=== PATIENT | female | born 1975 | race Hispanic/Latino ===

== ENCOUNTER 2021-09-08 21:57 | Emergency (ER) | payer SELFPAY ==
[2021-09-08 22:13] VITALS: BP 149/85
[2021-09-08] MEDS ORDERED: ASPIRIN 81 MG TAB CHEW PO ONE (22:43)
--- NOTE | 2021-09-08 22:49 | Emergency Department Report ---
ED General Adult HPI - General Chief complaint: Chest Pain Stated complaint: chest pain Time Seen by Provider: 09/08/21 22:19 Source: patient, EMS Mode of arrival: Wheelchair Limitations: No Limitations - History of Present Illness Initial comments: 45-year-old female patient presents to the emergency department with complaints of chest pain starting today. Patient states she was sitting on a couch when her chest pain began. No exacerbating or relieving factors identified. Patient admits to recent drug use. Patient attributes her chest pain to anxiety. Patient states the chest pain has been constant and remains present. No history of hypertension, hyperlipidemia, diabetes. No known history of coronary artery disease. Denies fever, chills, cough, shortness of breath, wheezing, palpitations, syncope, lower extremity pain/swelling. Denies all other complaints at this time. - Related Data Allergies Allergy/AdvReac Type Severity Reaction Status Date / Time Penicillins Allergy Hives Verified 09/08/21 22:13 ED Review of Systems ROS: Stated complaint: BACK PAIN/CHEST PAIN/ANXIETY Other details as noted in HPI Other: GENERAL: Negative for fever, chills, weight change, anorexia, fatigue. ENT: Negative for ear pain, difficulty hearing, sore throat, nasal congestion, epistaxis. CARDIOVASCULAR: Positive for chest pain. PULMONARY: Negative for cough, dyspnea, wheezing, orthopnea, cyanosis. GASTROINTESTINAL: Negative for abdominal pain, nausea, vomiting, diarrhea, constipation. MUSCULOSKELETAL: Negative for joint pain, joint swelling, myalgias. NEUROLOGICAL: Negative for headache, seizure, syncope, paresthesias, weakness. INTEGUMENTARY: Negative for erythema, rash, diaphoresis, laceration, ecchymosis. HEMATOLOGICAL: Negative for hemoptysis, hematemesis, hematochezia, hematuria. PSYCHIATRIC: Positive for anxiety. ED Past Medical Hx - Past Medical History Previous Medical History?: No ED Physical Exam - General Limitations: No Limitations - Other Other exam information: General: Awake and alert. No acute distress. Sitting hunched over in wheelchair covered in a blanket. Head: Atraumatic, normocephalic. Eyes: EOMI. Pupils are equal and round. Normal sclera and conjunctiva. ENT: Oral mucosa is moist. Normal pharyngeal exam. Neck: Supple. No lymphadenopathy. Pulmonary: No respiratory distress. Clear to auscultation bilaterally. Cardiac: Regular rate and rhythm. Pulses are palpable and equal bilaterally. No lower extremity cyanosis or edema. Skin: Warm and dry. No rashes. Abdomen: Soft, non-tender, non-protuberant. No guarding, rigidity, or rebound. Bowel sounds are normal. No organomegaly or masses noted. Back: Normal alignment. No CVA tenderness. Extremities: Symmetrical. Full range of motion intact. Neurological: Alert and oriented, appropriately interactive, no focal deficits. Psych: Refuses to make eye contact. ED Course Vital Signs 09/08/21 22:13 Temperature 98.2 F Pulse Rate 83 Respiratory 18 Rate Blood Pressure 149/85 [Left] O2 Sat by Pulse 96 Oximetry ED Medical Decision Making - Lab Data Result diagrams: 09/08/21 22:53 09/08/21 22:53 - EKG Data 09/09/21 01:59 EKG shows normal sinus rhythm with a ventricular rate of 88 bpm. Normal axis. Normal MI interval. Normal QT interval. Good R wave progression. No ST segment changes. Over by attending emergency physician, who agrees with this interpretation. - Medical Decision Making Differential diagnosis including but not limited to: acute coronary syndrome, cardiac arrhythmia, pericarditis, pericardial effusion/cardiac tamponade, coronary vasospasm, anxiety Patient presents to the emergency department with signs and/or symptoms that arise low risk clinical suspicion for pulmonary embolism. The patient has none of the following clinical criteria: age >50, heart rate >100, room air O2 saturation <94%, history of DVT/PE, recent trauma/surgery, hemoptysis, exogenous estrogen, or signs/symptoms of DVT. As a result, this patient has very low probability of pulmonary embolism and further testing is not indicated. Patient states she recorded the triage process on her phone. Patient attempted to record history and physical exam on her phone. Patient was informed of hospital policy against using recording devices. On reevaluation, patient is sleeping, and has reportedly been sleeping for the last 3 hours. EKG without acute injury pattern. Initial and repeat troponin within normal limits. Labs unremarkable. Urine drug screen is positive for methamphetamines and marijuana. Patient is hemodynamically stable. No clinical indication for further diagnostic work-up on an emergent basis at this time. Patient will be discharged home to follow-up with primary care provider this week. Patient was advised to discontinue illicit drug use. Strict return precautions provided. Repeat exam is unremarkable and benign. History, exam, diagnostic testing, and current condition do not suggest worrisome pathology to warrant further testing, continued ED treatment, admission, or surgical evaluation at this point. Given the low probability of a significant medical illness, it would be more likely to result in harm than benefit to perform further testing at this stage. Discussed findings, presumptive diagnosis, need for follow-up and specific signs/symptoms that should prompt immediate return to the emergency department. Instructions were explained in detail to the patient in addition to giving written discharge information. Patient expressed understanding and was given the opportunity to ask questions, all of which were satisfactorily answered prior to discharge home. Critical care attestation.: If time is entered above; I have spent that time in minutes in the direct care of this critically ill patient, excluding procedure time. ED Disposition Clinical Impression: Methamphetamine abuse, Marijuana use Chest pain Qualifiers: Chest pain type: unspecified Qualified Code(s): R07.9 - Chest pain, unspecified Disposition: 01 HOME / SELF CARE / HOMELESS Is pt being admited?: No Does the pt Need Aspirin: No Condition: Stable Instructions: Nonspecific Chest Pain, Adult Additional Instructions: Take Tylenol every 4 hours and Motrin every 8 hours as needed for pain. Please discontinue using illicit substances. Follow-up with primary care provider this week. Call today to schedule an appointment. See referral information below. Return to the emergency department immediately for new or worsening symptoms. Referrals: DIAMANTE DIALLO MD [Staff Physician] - 3-5 Days Time of Disposition: 03:55
[2021-09-08 23:21] LABS: Basophils % (Auto) 0.4 % (0.0-1.8); Eosinophils % (Auto) 0.2 % (0.0-4.3); Hematocrit 41.3 % (30.3-42.9); Hemoglobin 13.7 gm/dl (10.1-14.3); Lymphocytes # (Auto) 1.2 K/mm3 (1.2-5.4); Lymphocytes % (Auto) 8.4 % (13.4-35.0); Mean Corpuscular HGB Conc 33 % (30-34); Mean Corpuscular Volume 86 fl (79-97); Monocytes # (Auto) 0.7 K/mm3 (0.0-0.8); Monocytes % (Auto) 4.7 % (0.0-7.3); Platelet Count 306 K/mm3 (140-440); Red Blood Count 4.82 M/mm3 (3.65-5.03); Red Cell Distribution Width 13.3 % (13.2-15.2)
[2021-09-08 23:43] LABS: Alanine Aminotransferase 21 units/L (7-56); Albumin 4.4 g/dL (3.9-5); Blood Urea Nitrogen 7 mg/dL (7-17); Calcium 9.8 mg/dL (8.4-10.2); Hemolysis Index 1
[2021-09-08 23:47] LABS: BUN/Creatinine Ratio 10
--- NOTE | 2021-09-09 00:09 | XRay Report ---
CHEST 1 VIEW 09/08/2021 10:59 PM INDICATION / CLINICAL INFORMATION: chest pain. COMPARISON: None available. FINDINGS: SUPPORT DEVICES: None. HEART / MEDIASTINUM: No significant abnormality. LUNGS / PLEURA: No significant pulmonary or pleural abnormality. No pneumothorax. ADDITIONAL FINDINGS: No significant additional findings. IMPRESSION: 1. No acute findings. Signer Name: Toni Young DO Signed: 09/09/2021 12:04 AM Workstation Name: [id number]
[2021-09-09 02:02] LABS: Amphetamine Screen,Urine PRESUMPTIVE POSITIVE; Benzodiazepines Screen,Urine PRESUMPTIVE NEGATIVE; Bilirubin,Urine NEG (Negative); Blood,Urine NEG (Negative); Cannabinoid Screen,Urine PRESUMPTIVE POSITIVE; Cocaine Screen,Urine PRESUMPTIVE NEGATIVE; Color,Urine Yellow (Yellow); Hyaline Casts,Urine 1 /LPF; Methadone Screen,Urine PRESUMPTIVE NEGATIVE; Mucus,Urine 1+ /HPF; Opiate Screen,Urine PRESUMPTIVE NEGATIVE; Protein,Urine <15 mg/dL mg/dL (Negative); Urobilinogen,Urine < 2.0 mg/dL (<2.0)
--- NOTE | 2021-09-12 10:15 | Electrocardiograph Report ---
[facility] Test Date: 2021-09-08 Test Time: 23:36:07 Pat Name: AUGUST HARPER Department: Room: Gender: F Windscreen Fitter: ZACK : [id number] Requested By: YASH ISRAEL Order Number: [id number] Reading MD: Nancy Berman Measurements Intervals [place] Rate: 88 P: 53 ID: [id number] QRS: 53 QRSD: 90 T: 40 QT: 364 QTc: 441 Interpretive Statements Sinus rhythm Nonspecific ST changes No previous ECG available for comparison Electronically Signed On 09-12-2021 10:14:42 EDT by Nancy Berman
== END 2021-09-09 04:46 | disposition home or self-care (01) ==
LOC: ED 21:57
DX: R07.89 Other chest pain (principal); F15.10 Other stimulant abuse, uncomplicated; F12.90 Cannabis use, unspecified, uncomplicated; Z88.0 Allergy status to penicillin; Z79.899 Other long term (current) drug therapy
CPT/HCPCS: 36415; 71045; 80053; 80307; 80320; 81001; 83735; 84484; 84703; 85025; 93005; 99284; G0480